=== PATIENT | male | born 1955 | race Caucasian/White ===

== ENCOUNTER 2017-06-26 05:58 | Emergency (ER) | payer OTHER ==
[2017-06-26] MEDS ORDERED: NS 0.9% 1000 ML* 1,000 ML IV ONE (06:36)
[2017-06-26] MEDS ORDERED: Ondansetron INJ* 2 MG/ML VIAL IV ONE (06:36)
[2017-06-26] MEDS ORDERED: Ketorolac INJ* 30 MG/ML 1 ML VIAL IV ONE (06:36)
[2017-06-26] MEDS ORDERED: Morphine INJ* 10 MG/ML 1 ML CARPUJECT IV ONE (06:36)
--- NOTE | 2017-06-26 06:58 | ED ---
Sarwat Bañuelos Rebecca, scribed for Marian Ambrose MD on 06/26/17 at 0635 . Abdominal Pain/Male - HPI Summary HPI Summary: Pt is a 62 y/o M who presents to ED c/o abdominal pain. Sx began at 0200 this morning and is in the left flank without radiation. Pain is currently severe, ranked 10/10 and described as feeling "like it's inside." Treated with 2 Advil at 0230. Sx aggravated and alleviated by nothing. Additionally c/o N/V. Denies fever and dysuria. PMHx kidney stones 6 years ago and current sx feel similar. - History of Current Complaint Chief Complaint: EDFlankPain Stated Complaint: FLANK PAIN Hx Obtained From: Patient Onset/Duration: Lasting Hours, Still Present Severity Currently: Severe Pain Intensity: 10 Pain Scale Used: 0-10 Numeric Location: Flank - Left Radiates: No Aggravating Factor(s): Nothing Alleviating Factor(s): Nothing Associated Signs And Symptoms: Positive: Nausea, Vomiting. Negative: Fever - Allergies/Home Medications Allergies/Adverse Reactions: Allergies Allergy/AdvReac Type Severity Reaction Status Date / Time No Known Allergies Allergy Verified 06/26/17 06:04 PMH/Surg Hx/FS Hx/Imm Hx Endocrine/Hematology History: Denies: Hx Diabetes Cardiovascular History: Denies: Hx Hypertension History: Reports: Hx Kidney Stones Infectious Disease History: No Infectious Disease History: Denies: Traveled Outside the [place] in Last 30 Days - Family History Known Family History: Negative: Hypertension, Diabetes - Social History Alcohol Use: Rare Substance Use Type: Reports: None Smoking Status (MU): Never Smoked Tobacco Review of Systems Negative: Fever Positive: Abdominal Pain - Left flank pain, Vomiting, Nausea Negative: dysuria All Other Systems Reviewed And Are Negative: Yes Physical Exam - Summary Physical Exam Summary: VITAL SIGNS: Reviewed. GENERAL: ~Patient is a well-developed and nourished male who is lying comfortable in the stretcher. Patient is not in any acute respiratory distress. HEAD AND FACE: No signs of trauma. No ecchymosis, hematomas or skull depressions. No sinus tenderness. EYES: PERRLA, EOMI x 2, No injected conjunctiva, no nystagmus. EARS: Hearing grossly intact. Ear canals and tympanic membranes are within normal limits. MOUTH: Oropharynx within normal limits. NECK: Supple, trachea is midline, no adenopathy, no JVD, no carotid bruit, no c- spine tenderness, neck with full ROM. CHEST: Symmetric, no tenderness at palpation LUNGS: Clear to auscultation bilaterally. No wheezing or crackles. CVS: Regular rate and rhythm, S1 and S2 present, no murmurs or gallops appreciated. ABDOMEN: Soft, non-tender. No signs of distention. No rebound no guarding, and no masses palpated. Bowel sounds are normal. EXTREMITIES: FROM in all major joints, no edema, no cyanosis or clubbing. No CVA tenderness. NEURO: Alert and oriented x 3. No acute neurological deficits. Speech is normal and follows commands. SKIN: Dry and warm Triage Information Reviewed: Yes Vital Signs On Initial Exam: Initial Vitals Temp Pulse Resp BP Pulse Ox 97.1 F 67 16 153/91 98 06/26/17 06:02 06/26/17 06:02 06/26/17 06:02 06/26/17 06:02 06/26/17 06:02 Vital Signs Reviewed: Yes Diagnostics - Vital Signs Vital Signs Temp Pulse Resp BP Pulse Ox 06/26/17 06:02 97.1 F 67 16 153/91 98 - Laboratory Lab Statement: Any lab studies that have been ordered have been reviewed, and results considered in the medical decision making process. Abdominal Pain Fem Course/Dx - Course Assessment/Plan: Pt is a 62 y/o M who presents to ED c/o severe left flank pain since 0200 this morning, currently severe, ranked 10/10 and described as feeling "like it's inside." Treated with 2 Advil at 0230. Additionally c/o N/V. Denies fever and dysuria. PMHx kidney stones 6 years ago and current sx feel similar. In the ED course, pt received toradol, morphine, zofran, and fluids. Pt will be signed out to Dr. Noel, pending dispo, awaiting CT Abd/Pel. - Diagnoses Provider Diagnoses: Left flank pain Discharge - Sign-Out/Discharge Documenting (check all that apply): Sign-Out Patient Signing out patient TO: Sanjay Noel - CT Abd/Pel - Discharge Plan Condition: Stable Referrals: No Primary Care Phys,NOPCP [Primary Care Provider] - The documentation as recorded by the Sarwat carney Rebecca accurately reflects the service I personally performed and the decisions made by , Marian Ambrose MD.
[2017-06-26 06:59] LABS: ABS Basophils 0.1 10^3/ul (0-0.2); ABS Eosinophils 0 10^3/ul (0-0.6); ABS Lymphocytes 0.8 10^3/ul (1.0-4.8); ABS Monocytes 0.4 10^3/ul (0-0.8); ABS Neutrophils 7.6 10^3/ul (1.5-7.7); ABS Nucleated RBC 0 10^3/ul; Eosinophil % 0.3 % (0-6); Hematocrit 42 % (42-52); Hemoglobin 14.2 g/dl (14.0-18.0); Lymphocyte % 9.3 % (25-47); Mean Corpuscular HGB Conc 34 g/dl (31-36); Mean Corpuscular Hemoglobin 29 pg (27-31); Mean Corpuscular Volume 86 fL (80-94); Mean Platelet Volume 7.7 um3 (7.4-10.4); Nucleated Red Blood Cells % 0; Platelet Count 156 10^3/ul (150-450); Red Blood Count 4.87 10^6/ul (4.0-5.4); Red Cell Distribution Width 14 % (10.5-15)
[2017-06-26 07:23] LABS: EGFR Non-African American 39.2 (>60)
--- NOTE | 2017-06-26 07:30 | RAD ---
INDICATION: Left flank abdominal pain. COMPARISON: There are no prior studies available for comparison. TECHNIQUE: A CT scan of the abdomen and pelvis was performed without intravenous or oral contrast. Contiguous axial sections were obtained from the lung bases through the symphysis pubis. Images were reconstructed in the coronal and sagittal planes. FINDINGS: Images through the lung bases demonstrate a small infiltrate in the right lower lobe. No pleural effusion is present. The liver and spleen are normal in size without significant focal abnormality on this noncontrast study. There is increased density present dependently within the gallbladder most consistent with gallstones. The gallbladder is not distended. No gallbladder wall thickening is seen. The pancreas appears to be within normal limits. There is a 0.9 cm left adrenal nodule. The right adrenal gland appears to be within normal limits. The right kidney appears normal. The left kidney appears enlarged. There is perinephric stranding around the left kidney. There is dilatation of the left renal calyces, pelvis and ureter to the level of the ureterovesical junction. There is a 3 mm calculus in that region. These findings cause moderate hydronephrosis. The patient appears to be status post prostatectomy. The aorta is normal in caliber without significant calcific plaque. No significant enlarged retroperitoneal lymph nodes are seen. The stomach, small and large bowel appear nondistended. The appendix is within normal limits. There is moderate descending and sigmoid diverticulosis. There is no evidence for diverticulitis or colitis. No free intraperitoneal air or fluid is seen. No significant focal osseous abnormality is seen. IMPRESSION: 1. THERE IS A 3 MM CALCULUS AT THE LEFT URETEROVESICAL JUNCTION CAUSING MODERATE HYDRONEPHROSIS. 2. CHOLELITHIASIS WITHOUT EVIDENCE FOR ACUTE CHOLECYSTITIS. 3. STATUS POST PROSTATECTOMY. 4. SMALL LEFT ADRENAL NODULE. RECOMMEND A FOLLOW-UP NONCONTRAST CT OF THE ABDOMEN IN 6 MONTHS TIME TO DEMONSTRATE STABILITY.
[2017-06-26] MEDS ORDERED: Morphine INJ* 4 MG/ML 1 ML SYRINGE (NEW SYRINGE VERSION) IV ONE (08:08)
[2017-06-26] MEDS ORDERED: Tamsulosin CAP* 0.4 MG PO ONE (08:08)
[2017-06-26] MEDS ORDERED: Morphine VIAL* 4 MG/ML VIAL (1 ml vial) IV ONE (08:14)
[2017-06-26 08:25] VITALS: BP 119/71
--- NOTE | 2017-06-27 08:11 | ED ---
Jon Bañuelos Angela, scribed for Sanjay Noel MD on 06/26/17 at 0731 . Progress - Progress Note Progress Note: This pt was signed out by Dr. Ambrose, pending disposition, awaiting CT abdomen/ pelvis. Pt is a 62 y/o male presenting to [facility] c/o left flank pain since 02:00 this morning. He has hx of kidney stones. Pt reports his pain today feels like previous kidney stones. On re-eval, pt notes his pain has decreased, rating it 5/10 in severity. Physical Exam: VITAL SIGNS: Reviewed. GENERAL: Patient is a well-developed and nourished male who is lying comfortable in the stretcher. Patient is not in any acute respiratory distress. HEAD AND FACE: Normocephalic and atraumatic. EYES: PERRLA, EOMI x 2, No injected conjunctiva. EARS: Hearing grossly intact. Ear canals and tympanic membranes are WNL. MOUTH: Oropharynx within normal limits. NECK: Supple, trachea is midline, no adenopathy, no JVD. CHEST: Symmetric, no tenderness at palpation LUNGS: Clear to auscultation bilaterally. No wheezing or crackles. CVS: RRR, S1 and S2 present, no murmurs or gallops appreciated. ABDOMEN: Soft. Right flank tenderness. Right costovertebral angle tenderness. No signs of distention. Positive bowel sounds. No rebound no guarding, and no masses palpated. No abdominal bruit or pulsations. EXTREMITIES: FROM in all major joints, no edema, no cyanosis or clubbing. NEURO: Alert and oriented x 3. No acute neurological deficits. Speech is normal. SKIN: Dry and warm Abdomen/Pelvis CT, as read by radiologist IMPRESSION: 1. There is a 3 mm calculus at the left ureterovesical junction causing moderate hydronephrosis. 2. Cholelithiasis without evidence for acute cholecystitis. 3. Status post prostatectomy. 4. Small left adrenal nodule recommend a follow-up noncontrast CT of the abdomen in 6 months time to demonstrate stability. Dr. Noel has reviewed this radiology report. Re-Evaluation - Re-Evaluation First Eval Re-Evaluation Time: 07:15 Comment: He is still awaiting CT abdomen/pelvis. Pt notes his pain has decreased , rating it 5/10 in severity. Second Eval Re-Evaluation Time: 08:16 Comment: I reviewed the CT results with the pt. Pt will be discharged to home. Course/Dx - Course Course Of Treatment: This pt was signed out by Dr. Ambrose to follow up on the abdomen/pelvis CT. Test results without any significant abnormalities except for glucose of 139. CT abdomen/pelvis shows 1. There is a 3 mm calculus at the left ureterovesical junction causing moderate hydronephrosis. 2. Cholelithiasis without evidence for acute cholecystitis. 3. Status post prostatectomy. 4. Small left adrenal nodule recommend a follow-up noncontrast CT of the abdomen in 6 months time to demonstrate stability. In the ED course the pt was given morphine and Flomax. After these medications, the pt reports his pain has decreased. Therefore he will be discharged to home with follow up from his PCP. I discussed all the findings and test results with the patient. Pt was instructed to have a follow up CT in 6 months for the small left adrenal nodule seen in the CT today. All questions were answered to patient satisfaction. There were no further complaints or concerns. Pt was discharged home with a prescription for Percocet. He is instructed to return to the ED for any worsening or new symptoms. Pt is hemodynamically stable, alert and oriented x3. - Diagnoses Provider Diagnoses: Kidney stone Discharge - Sign-Out/Discharge Documenting (check all that apply): Discharge - discharge to home, Receiving Sign-Out Receiving patient FROM: Marian Ambrose - Discharge Plan Condition: Stable Disposition: HOME Prescriptions: oxyCODONE/Acetamin 5/325 MG* [Percocet 5/325 TAB*] 1 tab PO Q6H PRN #[id number] tab MDD 4 PRN Reason: Pain Patient Education Materials: Kidney Stones (ED) Referrals: [facility] [place] [facility] [Outside] Additional Instructions: Please follow up with your primary care provider. Recommend follow up CT in 6 months for the small left adrenal nodule seen in your CT today. RETURN TO THE ED FOR ANY NEW OR WORSENING SYMPTOMS. The documentation as recorded by the Jon carney Angela accurately reflects the service I personally performed and the decisions made by me, Sanjay Noel MD.
== END 2017-06-26 08:26 | disposition home or self-care (01) ==
LOC: ED 05:58
DX: N20.0 Calculus of kidney (principal); Z87.442 Personal history of urinary calculi; K80.20 Calculus of gallbladder without cholecystitis without obstruction; E27.9 Disorder of adrenal gland, unspecified
CPT/HCPCS: 36415; 74176; 80053; 83735; 85025; 86140; 96360; 96374; 96375; 96376; 99284; J1885; J2270; J2405